=== PATIENT | female | born 1965 | race Caucasian/White ===

== ENCOUNTER → 2024-08-28 14:56 | Outpatient (REF) | payer BC, SELFPAY | LOC: RAD 14:56 | PROVIDERS: ATTENDING PHYSICIAN Family Medicine | DX: R10.84 Generalized abdominal pain (principal) | CPT/HCPCS: 74178; Q9967 ==

== ENCOUNTER 2024-09-13 06:29 | Day surgery (SDC) | payer BC, SELFPAY | END 2024-09-13 15:45 | disposition home or self-care (01) | LOC: GI 06:29 | PROVIDERS: ATTENDING PHYSICIAN Internal Medicine Gastroenterology; FAMILY PHYSICIAN Family Medicine | DX: R93.3 Abnormal findings on diagnostic imaging of other parts of digestive tract (principal); K64.8 Other hemorrhoids; D12.3 Benign neoplasm of transverse colon; D12.4 Benign neoplasm of descending colon; D12.2 Benign neoplasm of ascending colon; C18.0 Malignant neoplasm of cecum | CPT/HCPCS: 45385; 45381; 45380; 88305 ==

== ENCOUNTER → 2024-09-30 08:10 | Outpatient (REF) | payer BC, SELFPAY | LOC: HWRAD 08:10 | PROVIDERS: ATTENDING PHYSICIAN Surgery; FAMILY PHYSICIAN Family Medicine | DX: C18.2 Malignant neoplasm of ascending colon (principal) | CPT/HCPCS: 71270; Q9967 ==

== ENCOUNTER 2024-10-04 06:10 | Inpatient (IN) | payer BC, SELFPAY ==
[2024-09-27 09:01] LABS: Hematocrit 35.6 % (37.0-47.0); Hemoglobin 11.5 g/dL (12.0-16.0); Mean Corp Hgb Conc. 32.3 g/dL (33.0-37.0); Mean Corpuscular Hgb 26.3 pg (27.0-31.0); Mean Corpuscular Volume 81.5 fL (81.0-99.0); Platelet Count 448 10^3/uL (130-400); Red Blood Cell Count 4.37 10^6/uL (4.20-5.40); Red Cell Dist. Width 13.9 % (11.5-14.5); White Blood Cell Count 7.2 10^3/uL (4.8-10.8)
[2024-09-27 09:07] LABS: INR 0.81; PT 11.5 Sec (11.4-14.6)
[2024-09-27 09:08] LABS: APTT 28.3 Sec (23.4-35.0)
[2024-09-27 09:23] LABS: ALT (SGPT) 17 U/L (0-35); AST (SGOT) 21 U/L (14-36); Alkaline Phosphatase 99 U/L (38-126); Blood Urea Nitrogen 19 mg/dl (7-17); Calcium 8.9 mg/dl (8.4-10.2); Carbon Dioxide 27 mmol/L (22-30); Chloride 109 mmol/L (98-107); Glucose 106 mg/dl (70-99); Potassium 4.8 mmol/L (3.5-5.1); Sodium 141 mmol/L (135-145); Total Bilirubin 0.3 mg/dl (0.2-1.3); Total Protein 6.5 g/dl (6.3-8.2); eGFR > 60.00
[2024-09-27 12:46] VITALS: BMI 27.4
[2024-10-04] VITALS (13 sets, daily range): BP systolic 100–128; BP diastolic 58–80; BMI 27.4
[2024-10-04] MEDS: NORMOSOL-R/PLASMALYTE-A 1000 IV ×2 (06:55→13:12)
[2024-10-04] MEDS: TYLENOL 1000 MG PO ×2 (07:01→14:23)
[2024-10-04] MEDS: ENTEREG 12 MG PO (07:02)
[2024-10-04] MEDS: MOBIC 15 MG PO (07:02)
[2024-10-04] MEDS: LYRICA 150 MG PO (07:02)
[2024-10-04] MEDS: HEPARIN 5000 UNITS SC (07:02)
--- NOTE | 2024-10-04 11:40 | W.IMMPOSTOP ---
Addendum entered and electronically signed by Chino Sharp MD 10/04/24 12:23:
updated spouse via phone
Original Note:
Surgical Immed Post Op Note
-
Primary Surgeon: Chino Sharp MD
Assisting Surgeon: JOVANY Sepulveda
Pre-op Diagnosis: Cecal colon cancer
Post-op Diagnosis: Cecal colon cancer
Procedure Performed: Robotic right hemicolectomy, lysis of adhesions, mesenteric angiography with ICG, repair of serosal injury x 2, laparoscopic TAP block
Anesthesia Type: General
Specimen / Cultures: Right colectomy
Estimated Blood Loss: 50
IVF: 2.3 L
UOP: 250 mL
Complications: None
Operative Findings: Entered via Veress technique; surgical survey revealed no concerning liver lesions or peritoneal lesions; identified tattoo at the proximal ascending colon; mild amount of adhesions between the cecum and right lower quadrant as
well as the transverse colon and omentum to the colon mesentery; high ligation of the ileocolic pedicle and the right branch of the middle colic; confirmed perfusion with ICG; divided 8 cm proximal to the ileocecal valve and at the mid transverse
colon with the 60 mm robotic stapler with blue loads; during construction of anastomosis, 1 cm retraction serosal injury to the mid transverse colon and 1 cm serosal electrocautery injury to the distal ileum; both repaired with inverting Lembert
stitches with 3-0 Vicryl interrupted stitches; performed [id number] isoperistaltic stapled intracorporeal anastomosis; hemostasis confirmed; closed the left mid abdominal port with an 0 Vicryl and a Javier Concepcion; laparoscopic tap block
bilaterally; remove specimen, confirmed margins and closed in the usual fashion
--- NOTE | 2024-10-04 11:48 | OR.RPT ---
Operative Report
Operative Report
DATE OF OPERATION: 10/04/2024
SURGEON: Chino Sharp MD
PREOPERATIVE DIAGNOSIS: Cecal colon cancer
POSTOPERATIVE DIAGNOSIS: Cecal colon cancer
OPERATION: Robotic right hemicolectomy, adhesiolysis greater than 30 minutes, mesenteric angiography with ICG, repair of serosal injury x 2, laparoscopic TAP block
ASSISTANTS:
1. JOVANY Sepulveda
ANESTHESIA: General
ESTIMATED BLOOD LOSS: 50 mL
UOP: 250 mL
IVF: 2.3 L
FINDINGS:
1. No concerning lesions seen in the peritoneum or surface of the liver; tattoo identified in the proximal ascending colon
2. During construction of the anastomosis, 2 serosal injuries occurred in the transverse colon and distal ileum, both less than 1 cm and repaired primarily with imbricating 3-0 Vicryl stitches
3. Performed intracorporeal [id number] isoperistaltic ileocolic stapled anastomosis; confirmed adequate perfusion via firefly
SPECIMENS:
1. Right colectomy
DRAINS: None
COMPLICATIONS: No immediate complications.
INDICATIONS: The patient is a 58-year-old female who developed abdominal pain and was found to have a cecal mass on CT scan. She underwent colonoscopy and the cecal mass was confirmed, biopsied and tattooed. Biopsy revealed invasive
adenocarcinoma. Staging CT scans showed no evidence of metastatic spread. Therefore, the patient was recommended to undergo surgery. The operation was discussed with the patient in detail, including the risks, benefits and alternatives. Risks
described included, but not limited to, bleeding, infection, anastomotic leak, damage to nearby structures (i.e.- bowel, bladder, solid organ injury, ureter), need for ostomy creation, conversion to open, incisional hernia, inability to remove the
entire cancer, future recurrence or metastasis and anesthetic risks. The patient and patient's spouse understood and agreed to proceed.
PROCEDURE IN DETAIL: The patient was taken to the operating room and placed on the operating table in supine position. Sequential compression devices were placed bilaterally. General anesthesia was induced and the patient was intubated without
complication. Bilateral arms were tucked. Alfaro catheter was placed with sterile technique. Anesthesia placed an orogastric tube. Preoperative antibiotics were given. The abdomen was shaved, prepped and draped in a sterile fashion. A marking
pen was used to inderjit out the midline. A time-out was performed verifying the correct patient, procedure, operative site, positioning, and special equipment.
At Hilario's point, using an 11 blade scalpel, an 8 mm incision was made. A Veress needle was used to obtain abdominal access. After 3 clicks, insufflation was initiated and the opening pressure was noted to be less than 8 mmHg. The abdomen was
insufflated to a pressure of 12, which the patient tolerated well. The 8 mm robotic trocar was introduced and the robotic endoscope advanced. No injury from initial Veress placement or port placement was noted. The abdomen was explored. There
were no concerning peritoneal lesions or superficial lesions on the liver. The tattoo was seen in the proximal ascending colon.
In a diagonal fashion from the planned Pfannenstiel incision to the Hilario's point incision, 2 more robotic trocars were placed under direct visualization taking care to avoid injury to the epigastric vessels. An assist port was placed in the left
lateral abdomen under direct visualization as well. Then, a 5 cm Pfannenstiel incision was made with electrocautery 2 fingerbreadths superior to the pubic symphysis. I took this down to the level of fascia with Bovie electrocautery and hemostasis
was assured. The anterior fascia was incised with electrocautery and extended to just beyond the length of the Pfannenstiel incision on each side. Using clara's, the anterior fascia was grasped and elevated. The attachments to the rectus muscle
were taken down bluntly and attachments to the midline were taken down with electrocautery. This was done both superiorly and inferiorly to our incision. Then, the midline was split, first with electrocautery and then with Kellys to spread the
rectus muscle. The preperitoneal fat was and the peritoneum was grasped and elevated. The peritoneum was divided with Metzenbaum scissors and the abdomen was entered. The peritoneum was opened superiorly and inferiorly to the extent that
our incision would allow, taking care to avoid injury to the bladder. A small Anish was placed and a port cap attached. The 12 mm robotic port was placed through the port cap. The patient was placed in [id number] with slight Trendelenburg.
The robot was docked from the patient's right side. From the Pfannenstiel to Hilario's point, the instruments introduced were the bipolar grasper, camera, scissors and tip up grasper.
To begin, I grasped and elevated the cecum. However, this was hindered due to RLQ adhesions. Therefore, I performed adhesiolysis to free up the cecum, terminal ileum and right colon. I easily identified the right ureter by witnessing
vermiculation. I swept the small bowel towards the pelvis. Using my tip-up grasper, I retracted the transverse colon. There were additional adhesions between the transverse colon and omentum to the mesentery of the transverse colon, which were
sharply lysed. The ileocolic pedicle was nicely exposed. A medial to lateral mobilization was performed by first incising the peritoneal lining just below the pedicle using the robotic scissors. I elevated the pedicle anteriorly and swept the
retroperitoneum down bluntly in order to identify the duodenum. Once the duodenum was swept away from the takeoff of the ileocolic pedicle, I isolated the ileocolic pedicle circumferentially and performed high ligation using the vessel sealer. The
ileocolic stump was hemostatic. I continued my medial to lateral dissection up to the hepatic flexure and then below the right colon and cecum, taking care to avoid injury to the duodenum, right kidney and right ureter. I took care to include the
mesentery of the appendix as well as the first 8 cm of the terminal ileum due to some lymphadenopathy seen around the appendix on CT. There was no concerning visible adenopathy during the surgery.
After the right colon was completely mobilized medially, I turned my attention to the transverse colon. I grasped and elevated the omentum while retracting the transverse colon caudally. I divided the gastrocolic ligament and entered the lesser
sac. This was confirmed by visualizing the posterior wall of the stomach. I carried this dissection around the hepatic flexure using a combination of blunt dissection and the vessel sealer, taking care to avoid injury to the liver, gallbladder,
duodenum and pancreas. There were adhesions between the bulky omentum, proximal transverse colon and distal ascending colon. This area of the omentum was included with the specimen. Once the hepatic flexure was completely mobilized, I continued
this dissection by taking down the white line of Toldt to my previous dissection of the cecum. I mobilized the attachments of the terminal ileum and its mesentery from the RLQ and right pelvic brim, taking care to avoid injury to the right ureter.
At this point, the entire cecum, right colon and hepatic flexure were nicely mobilized. I selected a point about 8 cm proximal from the ileocecal valve and elevated this with my tip up grasper. I grasped the transected ileocolic pedicle on the
specimen side and used the vessel sealer to serially ligate the mesentery up to my selected point on the terminal ileum.
I grasped the transverse colon and elevated this in order to expose and visualize the mesentery. I identified the right branch of the middle colic and ensured my staple line was just distal to the vessel. I created a hole in the mesentery at the
mesenteric border of the transverse colon. I serially divided the mesentery towards my previous dissection, taking care to avoid injury to the duodenum and pancreas, ligating the right branch of the middle colic in a high-ligation fashion. There
was no apparent right colic artery. Anesthesia injected ICG and I confirmed adequate perfusion to my intended transection points. Using the 60 mm robotic stapler with a blue load, I stapled and divided the transverse colon and the terminal ileum.
The specimen was placed in the pelvis.
I examined the bowel for my future anastomosis. I placed the terminal ileum adjacent to the transverse colon. However, during retraction of the transverse colon, I noted a small serosal injury in the mid transverse colon, distal to my intended
anastomosis. This was less than 1 cm. I repaired this primarily with imbricating interrupted Lembert stitches of 3-0 Vicryl. Additionally, during retraction of the terminal ileum, there was an electrocautery injury to the serosa. The area of
injury was also less than 1 cm, close to the mesenteric border, involving less than 50% of the circumference. This was repaired primarily with imbricating interrupted Lembert stitches of 3-0 Vicryl oriented in a transverse fashion. The terminal
ileum and transverse colon aligned nicely for a [id number] isoperistaltic anastomosis without any evidence of tension. I upsized the left upper/mid�abdomen port to a 12 mm robotic port. I created a colotomy at about 8 cm distal to the staple line
on the transverse colon and an enterotomy 2 cm proximal to the staple line on the terminal ileum. I advanced the 60 mm robotic stapler with a white load through the bowel openings, ensured ideal alignment and fired. After the robotic stapler was
withdrawn, no bleeding was noted from the staple line. The common defect was closed using a 3-0 V-loc suture in 2 layers, starting from the superior aspect and sewing inferiorly in a running baseball fashion, and then superiorly in a running
[place] fashion in order to imbricate the first layer.
After the anastomosis was complete, the operative field was examined. There was complete hemostasis, no bowel herniating through the mesenteric defect and good perfusion to our anastomosis without any evidence of tension. The greater omentum was
grasped and evaluated and appeared well-vascularized.
The instruments were removed and the robot was undocked. The specimen was removed through the Pfannenstiel incision. The specimen was evaluated on the back-table and the margins were noted to be more than adequate. The fascia of the upsized port
was closed using a Javier Concepcion device and a 0 Vicryl suture. A TAP block was performed under laparoscopic guidance. 15mL of 0.25% Marcaine with epinephrine and dexamethasone was injected bilaterally in the transversus abdominis plane. The
ports were removed under direct visualization and no bleeding was noted. The abdomen was allowed to desufflate. The Pfannenstiel incision was closed in layers. Using an 0 Vicryl stitch, the peritoneum was closed in a running fashion. The fascia
was closed with an 0 Stratafix suture. The incisions were irrigated and injected with the remaining 30mL of local. The skin of the incisions were closed with a 4-0 Monocryl in running subcuticular fashion and dressed with Dermabond.
At this point, the procedure was complete. The patient was awoken and extubated without complication. All needle, sponge and instrument counts were reported as correct. The patient tolerated the procedure well and was transferred to the recovery
room in stable condition with the alfaro in place.
Colon cancer synoptic report:
� Operation performed with curative intent: Yes
� Tumor location: Cecum
� Arterial ligation: High ligation of ileocolic pedicle and right branch of the middle colic
DICTATED BY: Chino Sharp MD
[2024-10-04 11:51] LABS: Glucose - Point of Care 162 mg/dl (70-99)
--- NOTE | 2024-10-04 12:50 | PTCARENOTE ---
Pt arrived to floor in bed from PACU. Pt very drowsy but arousable. AAO x 3, Reg apical, Lungs CTA; SpO2 ~ 95% on 2L O2 via NC; Jama in place draining clear yellow urine. Denies pain; L abd lap sites x 4, glued/SERVICE CONSULTANT. Suprapubic incision x 1
glued with 4x4 dressing - min drainage noted. Oriented to room, call galicia within reach. Will continue to monitor and assess.
[2024-10-04] MEDS: TORADOL 15 MG IV ×3 (13:13→23:05)
[2024-10-04] MEDS: LEXAPRO 15 MG PO (21:20)
[2024-10-04] MEDS: TYLENOL 650 MG PO (23:20)
[2024-10-05 03:04] VITALS: BP 107/71
[2024-10-05] MEDS: TYLENOL 650 MG PO ×3 (03:17→11:23)
[2024-10-05] MEDS: TUMS CHEWABLE TABLET 200 MG PO (03:57)
[2024-10-05] MEDS: TORADOL 15 MG IV ×2 (05:18→11:23)
[2024-10-05] MEDS: SYNTHROID 112 MCG PO (05:18)
[2024-10-05 06:00] VITALS: BMI 27.2
[2024-10-05 06:14] LABS: % Basophils 0.1 % (0-2); % Immature Granulocytes 0.4 % (0-0.5); % Lymphocytes 8.3 % (20.5-51.1); % Monocytes 6.3 % (1.7-9.3); % Neutrophils 84.9 % (42.2-75.2); Absolute Lymphocytes 0.9 10^3/uL (1.2-3.4); Absolute Monocytes 0.7 10^3/uL (0.1-0.6); Absolute Neutrophils 9.7 10^3/uL (1.4-6.5); Hematocrit 30.5 % (37.0-47.0); Hemoglobin 9.8 g/dL (12.0-16.0); Mean Corp Hgb Conc. 32.1 g/dL (33.0-37.0); Mean Corpuscular Hgb 25.7 pg (27.0-31.0); Mean Corpuscular Volume 79.8 fL (81.0-99.0); Mean Platelet Volume 8.8 fL (7.4-10.4); Nucleated Red Blood Cells % 0 %; Platelet Count 372 10^3/uL (130-400); Red Blood Cell Count 3.82 10^6/uL (4.20-5.40); Red Cell Dist. Width 13.7 % (11.5-14.5); White Blood Cell Count 11.4 10^3/uL (4.8-10.8)
[2024-10-05 06:47] LABS: Blood Urea Nitrogen 8 mg/dl (7-17); Calcium 8.2 mg/dl (8.4-10.2); Carbon Dioxide 24 mmol/L (22-30); Chloride 111 mmol/L (98-107); Estimated Creatinine Clearance 83 ml/min; Glucose 120 mg/dl (70-99); Magnesium 2.4 mg/dl (1.6-2.3); Potassium 4.5 mmol/L (3.5-5.1); Sodium 138 mmol/L (135-145); eGFR > 60.00
[2024-10-05 07:15] VITALS: BP 139/76
[2024-10-05] MEDS: ENTEREG 12 MG PO (08:08)
[2024-10-05] MEDS: NORMOSOL-R/PLASMALYTE-A 1000 IV (08:09)
--- NOTE | 2024-10-05 11:07 | W.PN.CRS1 ---
Addendum entered and electronically signed by Jesus Red MD 10/05/24 13:11:
I saw and examined the patient.
The Engineering Group Leader's note was reviewed and I agree with the note.
Comment: No co,plaints, Reg reg diet. Pain controlled. Has not passed flatus/B. Denies n/v. Exam approp, belly softly distended, incisions cdi. OK for DC home after flatus or BM
Original Note:
Today's Communication / Plan
-
Regular diet
Void trial
Assessment/Plan
-
58 yo female with a h/o Cecal colon cancer now POD #1 Robotic right hemicolectomy, lysis of adhesions, mesenteric angiography with ICG, repair of serosal injury x 2, laparoscopic TAP block
AFVSS
Acute anemia secondary to expected operative blood losses and hemodilutions, no evidence of active bleeding currently
Mild reactive leukocytosis
Await evidence of bowel recovery
--c/w regular diet as tolerated
--analgesics/antiemetics prn
--OOB/Ambulate
--d/c IVF
--remove alfaro for voiding trial
--Lovenox/SCDs for VTE ppx
Tentative d/c later today vs tomorrow once good bowel recovery
Subjective Data
Procedure
10/04/2024 Robotic right hemicolectomy, lysis of adhesions, mesenteric angiography with ICG, repair of serosal injury x 2, laparoscopic TAP block
Subjective Data
Date of Service: October 05, 2024
Patient seen and examined at bedside with Dr. Red. Minimal pain. Tolerating small amounts of food. Not yet passing flatus or stools. Denies n/v.
Objective Data
-
Vital Signs
Temp Pulse Resp BP Pulse Ox
98.0 F 69 16 139/76 99
10/05/24 07:15 10/05/24 07:15 10/05/24 07:15 10/05/24 07:15 10/05/24 07:15
Intake & Output
10/04/24 10/05/24 10/06/24
06:59 06:59 06:59
Intake Total 940 / 940
Output Total 3550 / 3550 100 / 100
Balance -2610 / -2610 -100 / -100
Intake:
Oral fluids 240 / 240
IV fluids (Total) 700 / 700
Normosol 100 / 100
Output:
Urine, Alfaro 3550 / 3550
Urine, Voided 100 / 100
Lab Results
10/05/24 05:50
10/05/24 05:50
Physical Exam
-
General: No Acute Distress and Mild Distress
Abdomen: Soft, Non Distended and Tender (minimal to incisions)
Skin: Warm and Dry
Incision: Clear, Dry, Intact (dermabond dressings, pfannenstiel incision with dry gauze dressing with minimal old blood)
[2024-10-05 11:15] VITALS: BP 111/69
--- NOTE | 2024-10-05 12:01 | CM ---
Initial assessment was completed with pt at bedside.
Pt is a 58yr old female admitted for a robotic right hemicolectomy.
At baseline, pt lives with her in a multi level home with 0ste.
Pt is indep at baseline and active; driving.
Pt has no equipment and no hx of VN/SNF
Per pt, she does not need VN; noting she has many medical and scientific illustrator in the family.
PCP; Nel Johnson
Pharm; [facility] [address] [place]
PLAN; Home with
--- NOTE | 2024-10-05 16:20 | W.DS.TRANS ---
Addendum entered and electronically signed by RINKU Lombardi 10/05/24 16:28:
dictated #[id number]
Original Note:
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
-
Discharge Instructions:
Discharge Diagnosis/Procedures Robotic right hemicolectomy for cecal colon
cancer
Diet Regular,As tolerated
Additional Diets Eat small meals as tolerated
Activity No strenuous activity
Additional Activity Do not lift over 10 lbs (gallon of milk) for the
next 3-4 weeks
Driving Restrictions Wait until off narcotics/comfortable twisting
Bathing Restrictions OK to Shower
Wound Care Allow the glue to flake off your incisions on
its own over the next 2-3 weeks. Avoid picking
or scrubbing off. Do not soak in a tub or pool
for the next 2 weeks.
Instructions:
Stand-Alone Forms:
Changes to Home Medications: No
Discharge Medications:
DC Medications w/original date entered in [employer]
escitalopram oxalate 10 mg tablet 15 mg PO HS Mental Health/Anxiety 10/04/18
levothyroxine 50 mcg tablet 112 mcg PO DAILY Thyroid 10/04/18
cholecalciferol (vitamin D3) 25 mcg (1,000 unit) tablet 1,000 units PO DAILY Supplement 09/27/24
cyanocobalamin (vitamin B-12) 1,000 mcg tablet 1,000 mcg PO DAILY Supplement 09/27/24
hydroxyzine HCl 10 mg tablet 10 mg PO PRN PRN ANXIETY 09/27/24
lifitegrast 5 % eye drops in a dropperette (Xiidra) 1 drp ophthalmic (eye) BID Eye Condition 09/27/24
multivitamin 1 tab PO DAILY Supplement 09/27/24
acetaminophen 325 mg tablet 650 mg (2 x 325 mg) PO Q4HPRN PRN mild pain #1 tab 10/05/24
apixaban 2.5 mg tablet (Eliquis) 2.5 mg PO BID 28 days #56 tabs 10/05/24
ibuprofen 200 mg tablet 400 - 600 mg (2 - 3 x 200 mg) PO Q6HPRN PRN moderate pain #1 tab 10/05/24
oxycodone 5 mg tablet 5 mg PO Q4HPRN PRN breakthrough/severe pain #15 tabs 10/05/24
Home Medication Changes
Pending Results: No
[2024-10-07 18:57] LABS: Hepatitis C Antibody Negative (Negative)
== END 2024-10-05 13:23 | disposition home or self-care (01) | DRG 330 ==
LOC: 2 SOUTH 06:10
PROVIDERS: ADMITTING PHYSICIAN Surgery; FAMILY PHYSICIAN Family Medicine
PROC: 0DN Gastrointestinal System, Release (ICD-10-PCS; 2024-10-04)
PROC: 0DNU4ZZ Release Omentum, Percutaneous Endoscopic Approach (ICD-10-PCS; 2024-10-04)
PROC: 8E0W4CZ Robotic Assisted Procedure of Trunk Region, Percutaneous Endoscopic Approach (ICD-10-PCS; 2024-10-04)
PROC: 0DQ Gastrointestinal System, Repair (ICD-10-PCS; 2024-10-04)
PROC: 0DQB8ZZ Repair Ileum, Via Natural or Artificial Opening Endoscopic (ICD-10-PCS; 2024-10-04)
PROC: 0DTF4ZZ Resection of Right Large Intestine, Percutaneous Endoscopic Approach (ICD-10-PCS; 2024-10-04)
PROC: 0DN Gastrointestinal System, Release (ICD-10-PCS; 2024-10-04)
PROC: B4141ZZ Fluoroscopy of Superior Mesenteric Artery using Low Osmolar Contrast (ICD-10-PCS; 2024-10-04)
DX: C18.0 Malignant neoplasm of cecum (principal); D62 Acute posthemorrhagic anemia; K91.71 Accidental puncture and laceration of a digestive system organ or structure during a digestive system procedure; E06.3 Autoimmune thyroiditis; F41.1 Generalized anxiety disorder; G47.33 Obstructive sleep apnea (adult) (pediatric); D72.829 Elevated white blood cell count, unspecified; Y65.8 Other specified misadventures during surgical and medical care; Y92.234 Operating room of hospital as the place of occurrence of the external cause; Z79.890 Hormone replacement therapy; Z88.2 Allergy status to sulfonamides; Z88.1 Allergy status to other antibiotic agents
CPT/HCPCS: 88309; 71046; 80048; 80053; 82962; 83735; 85025; 85027; 85610; 85730; 86803; 86850; 86900; 86901

== ENCOUNTER → 2025-01-01 16:58 | Outpatient (REF) | payer BC, SELFPAY | LOC: WDC 16:58 | PROVIDERS: ATTENDING PHYSICIAN Family Medicine | DX: Z12.31 Encounter for screening mammogram for malignant neoplasm of breast (principal) | CPT/HCPCS: 77063; 77067 ==

== ENCOUNTER → 2025-04-09 15:23 | Outpatient (REF) | payer BC, SELFPAY | LOC: RAD 15:23 | PROVIDERS: ATTENDING PHYSICIAN Internal Medicine Hematology & Oncology; FAMILY PHYSICIAN Family Medicine | DX: C18.9 Malignant neoplasm of colon, unspecified (principal) | CPT/HCPCS: 71260; 74177; Q9967 ==